=== PATIENT | male | born 1940 | race Caucasian/White ===

== ENCOUNTER 2017-06-04 10:23 | Emergency (ER) | payer MEDICAID, MEDICARE ==
[~2017-06-04] VITALS: Ht 165.1 cm; Wt 50.0 kg
[~2017-06-04 10:23] MED LIST: FURO40TA5 PO; INSLAN SQ; LISI10TA5 PO; METO25TA6 PO; SOLI5TAB5 PO; SPIR25TA4 PO
[2017-06-04 11:30] LABS: BASOPHILS % 0.6 % (0.0-2.0); EOSINOPHILS % 1.4 % (0.0-5.0); HEMATOCRIT. 43.5 % (42.0-52.0); HEMOGLOBIN. 14.6 g/dL (14.0-18.0); LYMPHOCYTES % 14.1 % (20.0-50.0); MEAN CORPUSCULAR HEMOGLOBIN 35.5 pg (28.0-32.0); MEAN CORPUSCULAR VOLUME 105.9 fL (80.0-94.0); MEAN PLATELET VOLUME 9.1 fl (7.4-10.4); MONOCYTES % 13.4 % (2.0-8.0); NEUTROPHILS % 70.5 % (40.0-76.0); PLATELET 191 x1000/uL (130-400); RED BLOOD CELL COUNT 4.11 mill/uL (4.7-6.1); RED CELL DISTRIBUTION WIDTH 18.8 % (11.6-14.6)
[2017-06-04 11:39] LABS: INR 1.5; PARTIAL THROMBOPLASTIN TIME 29.3 sec (24.0-34.0); PROTHROMBIN TIME 15.4 sec
[2017-06-04 12:55] VITALS: BP 123/70
[2017-06-04 13:14] LABS: CARBON DIOXIDE 21 mEq/L (21-32); CHLORIDE 101 mEq/L (98-107)
== END 2017-06-04 13:52 | disposition home or self-care (01) ==
LOC: ER 11:16
DX: R18.8 Other ascites (principal); I10 Essential (primary) hypertension; G89.29 Other chronic pain; E11.9 Type 2 diabetes mellitus without complications; K74.60 Unspecified cirrhosis of liver; Z79.4 Long term (current) use of insulin; Z79.82 Long term (current) use of aspirin; Z85.46 Personal history of malignant neoplasm of prostate
CPT/HCPCS: 36415; 80053; 85025; 85610; 85730; 99284

== ENCOUNTER 2017-06-20 15:40 | Observation (INO) | payer MEDICARE, MEDICAID ==
[~2017-06-20] VITALS: Ht 170.2 cm; Wt 75.3 kg
[2017-06-20] MEDS ORDERED: FUROSEMIDE 40MG/4ML VIAL IV STA (17:19)
[2017-06-20] MEDS ORDERED: ONDANSETRON HCL 4MG/2ML VIAL IV STA (17:19)
[2017-06-20 17:45] LABS: HEMOGLOBIN. 14.6 g/dL (14.0-18.0); MEAN CORPUSCULAR HEMOGLOBIN 35.5 pg (28.0-32.0); MEAN CORPUSCULAR VOLUME 107.3 fL (80.0-94.0); MEAN PLATELET VOLUME 8.6 fl (7.4-10.4); PLATELET 168 x1000/uL (130-400); RED CELL DISTRIBUTION WIDTH 18.3 % (11.6-14.6)
[2017-06-20 17:48] LABS: INR 1.2; PARTIAL THROMBOPLASTIN TIME 29.2 sec (24.0-34.0)
[2017-06-20 17:56] LABS: CARBON DIOXIDE 26 mEq/L (21-32); CHLORIDE 101 mEq/L (98-107); CREATINE KINASE 49 IU/L (39-308); TROPONIN I 0.03 ng/mL (0.00-0.04)
[2017-06-20 18:10] LABS: PLATELET ESTIMATE NORMAL
[2017-06-20] MEDS: GENTAMICIN 0.3% OPHTH DROPS 5ML BOTHEYE SCH (18:48)
[2017-06-20 18:50] LABS: CLARITY URINE CLEAR (CLEAR); COLOR URINE YELLOW (YELLOW); GLUCOSE URINE NEGATIVE (NEGATIVE); KETONES URINE NEGATIVE (NEGATIVE); LEUKOCYTE ESTERASE URINE NEGATIVE (NEGATIVE); NITRITE URINE NEGATIVE (NEGATIVE); OCCULT BLOOD URINE NEGATIVE (NEGATIVE); PH URINE 5.5 (4.5-8.0); PROTEIN URINE NEGATIVE (NEGATIVE); SPECIFIC GRAVITY URINE 1.011 (1.005-1.030)
[2017-06-20 21:45] VITALS: BP 99/69
[2017-06-20 23:00] VITALS: BP 128/78
[2017-06-20] MEDS ORDERED: DEXTROSE 50% WATER 50ML SYRINGE IV PRN (23:30)
[2017-06-21] VITALS: BP 94/63
[2017-06-21] MEDS: GENTAMICIN 0.3% OPHTH DROPS 5ML BOTHEYE SCH ×6 (00:14→18:45)
[2017-06-21 04:00] VITALS: BP 106/78
[2017-06-21 06:33] LABS: INR 1.2; PARTIAL THROMBOPLASTIN TIME 29.4 sec (24.0-34.0); PROTHROMBIN TIME 12.5 sec
[2017-06-21 06:47] LABS: HEMOGLOBIN. 13.7 g/dL (14.0-18.0); MEAN CORPUSCULAR HEMOGLOBIN 35.5 pg (28.0-32.0); MEAN CORPUSCULAR VOLUME 106.3 fL (80.0-94.0); PLATELET 164 x1000/uL (130-400); RED BLOOD CELL COUNT 3.85 mill/uL (4.7-6.1); RED CELL DISTRIBUTION WIDTH 18.1 % (11.6-14.6)
[2017-06-21] MEDS: BLOOD SUGAR DIAGNOSTIC STRIP TEST SCH ×3 (06:52→17:20)
[2017-06-21] MEDS: INSULIN LISPRO 100 UNITS/ML SUBCUT SCH ×3 (07:50→18:42)
[2017-06-21 08:00] VITALS: BP 107/73
[2017-06-21] MEDS ORDERED: PANTOPRAZOLE 40MG DR TABLET PO SCH (08:00)
[2017-06-21 11:30] VITALS: BP 116/91
[2017-06-21] MEDS: SPIRONOLACTONE 50MG TABLET PO SCH ×2 (11:37→17:00)
[2017-06-21] MEDS: FUROSEMIDE 40MG TABLET PO SCH ×2 (11:39→17:00)
[2017-06-21 12:52] LABS: PLATELET ESTIMATE NORMAL
[2017-06-21] MEDS ORDERED: LIDOCAINE HCL 1% 20ML VIAL (Pyxis) INJ ONE (14:17)
[2017-06-21] MEDS ORDERED: SODIUM BICARBONATE 4.2% 5 MEQ/10 ML DISP.SYRIN IV ONE (14:17)
[2017-06-21 19:48] VITALS: BP 102/67
== END 2017-06-21 20:30 | disposition home or self-care (01) ==
LOC: ER 15:53 → ENRESERV 19:13 → CANRESERV 19:13 → EDBEDREQ 20:42 → INTOOBSV 20:46 → 6EST 20:46 → EDBEDREQ 20:52 → EDBEDREQSVC 21:03 → ENRESERV 21:08
PROVIDERS: ADMIT Internal Medicine; ATTEND Internal Medicine
DX: R18.8 Other ascites (principal); K74.60 Unspecified cirrhosis of liver; I13.0 Hypertensive heart and chronic kidney disease with heart failure and stage 1 through stage 4 chronic kidney disease, or unspecified chronic kidney disease; N18.9 Chronic kidney disease, unspecified; I50.22 Chronic systolic (congestive) heart failure; E11.22 Type 2 diabetes mellitus with diabetic chronic kidney disease; N17.9 Acute kidney failure, unspecified; F10.21 Alcohol dependence, in remission; H10.9 Unspecified conjunctivitis; Z85.9 Personal history of malignant neoplasm, unspecified
CPT/HCPCS: 36415; 49083; 71010; 80048; 80053; 81003; 82550; 82962; 83605; 83690; 83880; 84443; 84484; 85025; 85610; 85730; 87040; 87070; 87205; 89050; 93005; 93970; 96372; 96374; 96375; 99285; C1893; G0378; J1815; J1940; J2405; J3490

== ENCOUNTER 2017-08-19 00:41 | Inpatient (IN) | payer MEDICARE, MEDICAID ==
[~2017-08-19] VITALS: Ht 160 cm; Wt 70.8 kg
[~2017-08-19 00:41] MED LIST changes: +SOLI5TAB PO; -SOLI5TAB5 PO
[2017-08-19] MEDS ORDERED: FUROSEMIDE 40MG/4ML VIAL IV NR (01:45)
[2017-08-19 02:11] LABS: BASOPHILS % 1.3 % (0.0-2.0); EOSINOPHILS % 2.2 % (0.0-5.0); HEMATOCRIT. 44.7 % (42.0-52.0); HEMOGLOBIN. 14.8 g/dL (14.0-18.0); LYMPHOCYTES % 10.7 % (20.0-50.0); MEAN CORPUSCULAR HEMOGLOBIN 35.7 pg (28.0-32.0); MEAN CORPUSCULAR VOLUME 107.9 fL (80.0-94.0); MEAN PLATELET VOLUME 8.3 fl (7.4-10.4); MONOCYTES % 13.4 % (2.0-8.0); NEUTROPHILS % 72.4 % (40.0-76.0); PLATELET 165 x1000/uL (130-400); RED BLOOD CELL COUNT 4.14 mill/uL (4.7-6.1); RED CELL DISTRIBUTION WIDTH 16.6 % (11.6-14.6)
[2017-08-19 02:22] LABS: INR 1.2; PARTIAL THROMBOPLASTIN TIME 27.5 sec (23.4-31.0); PROTHROMBIN TIME 12.7 sec (9.4-11.6)
[2017-08-19 02:29] LABS: CARBON DIOXIDE 22 mEq/L (21-32); CHLORIDE 106 mEq/L (98-107); TROPONIN I 0.03 ng/mL (0.00-0.04)
[2017-08-19] MEDS ORDERED: LEVOFLOXACIN 750MG PREMIX 150 ML IV NR (02:45)
[2017-08-19 16:00] VITALS: BP 104/71
[2017-08-19 17:02] VITALS: BP 104/71
[2017-08-19] MEDS ORDERED: FURO20TA4 PO (20:33)
[2017-08-19] MEDS ORDERED: METF10002 PO (20:35)
[2017-08-19] MEDS ORDERED: LISI-186 PO (20:35)
[2017-08-19] MEDS ORDERED: CARV3.1242 PO (20:35)
[2017-08-19] MEDS ORDERED: DEXTROSE 50% WATER 50ML SYRINGE IV PRN (23:15)
[2017-08-20 00:06] VITALS: BP 103/68
[2017-08-20 00:13] LABS: AMMONIA 51 uMol/L (<32)
[2017-08-20 04:40] VITALS: BP 104/74
[2017-08-20] MEDS: INSULIN LISPRO 100 UNITS/ML SUBCUT SCH ×4 (07:15→20:16)
[2017-08-20] MEDS: BLOOD SUGAR DIAGNOSTIC STRIP TEST SCH ×4 (07:38→20:12)
[2017-08-20 07:46] VITALS: BP 104/72
[2017-08-20] MEDS: CARVEDILOL 3.125 MG TABLET PO SCH ×2 (08:49→20:12)
[2017-08-20] MEDS: FUROSEMIDE 20MG TABLET PO SCH ×2 (08:49→17:58)
[2017-08-20] MEDS ORDERED: METOPROLOL TARTRATE 25MG TABLET PO SCH (09:00)
[2017-08-20] MEDS ORDERED: LIDOCAINE HCL 1% 20ML VIAL (Pyxis) INJ ONE (09:32)
[2017-08-20 13:11] VITALS: BP 108/68
[2017-08-20 15:20] VITALS: BP 86/60
[2017-08-20] MEDS ORDERED: ALBUMIN HUMAN 25GM/500ML (5%) IV NR (18:00)
[2017-08-20 19:18] VITALS: BP 93/66
[2017-08-21] VITALS (7 sets, daily range): BP systolic 93–133; BP diastolic 56–74
[2017-08-21] MEDS: BLOOD SUGAR DIAGNOSTIC STRIP TEST SCH ×3 (06:00→18:22)
[2017-08-21] MEDS: LACTULOSE 20G/30ML UDC PO SCH ×2 (06:00→13:19)
[2017-08-21] MEDS: INSULIN LISPRO 100 UNITS/ML SUBCUT SCH ×3 (06:04→18:22)
[2017-08-21] MEDS: FUROSEMIDE 20MG TABLET PO SCH ×3 (09:00→18:36)
[2017-08-21] MEDS: CARVEDILOL 3.125 MG TABLET PO SCH (09:00)
[2017-08-21 12:51] LABS: BASOPHILS % 0.5 % (0.0-2.0); EOSINOPHILS % 0.5 % (0.0-5.0); HEMATOCRIT. 43.9 % (42.0-52.0); HEMOGLOBIN. 14.4 g/dL (14.0-18.0); LYMPHOCYTES % 12.4 % (20.0-50.0); MEAN CORPUSCULAR HEMOGLOBIN 35.1 pg (28.0-32.0); MEAN CORPUSCULAR VOLUME 107.2 fL (80.0-94.0); MEAN PLATELET VOLUME 8.2 fl (7.4-10.4); MONOCYTES % 12.2 % (2.0-8.0); NEUTROPHILS % 74.4 % (40.0-76.0); PLATELET 159 x1000/uL (130-400); RED BLOOD CELL COUNT 4.09 mill/uL (4.7-6.1); RED CELL DISTRIBUTION WIDTH 16.1 % (11.6-14.6)
== END 2017-08-21 18:52 | disposition home or self-care (01) | DRG 441 ==
LOC: ER 00:51 → INTOOBSV 02:34 → 5WST 02:34 → OBSVTOIN 02:34 → EDBEDREQTM 02:37 → EDBEDREQ 02:37 → ENRESERV 14:34 → CANBEDREQ 16:06
PROVIDERS: ADMIT Internal Medicine; ATTEND Internal Medicine
PROC: 0W9G3ZZ Drainage of Peritoneal Cavity, Percutaneous Approach (ICD-10-PCS; principal; 2017-08-20)
DX: K72.90 Hepatic failure, unspecified without coma (principal); E43 Unspecified severe protein-calorie malnutrition; E11.9 Type 2 diabetes mellitus without complications; F03.90 Unspecified dementia, unspecified severity, without behavioral disturbance, psychotic disturbance, mood disturbance, and anxiety; K70.31 Alcoholic cirrhosis of liver with ascites; F10.20 Alcohol dependence, uncomplicated; Y90.9 Presence of alcohol in blood, level not specified; I10 Essential (primary) hypertension; Z79.4 Long term (current) use of insulin; Z79.899 Other long term (current) drug therapy
CPT/HCPCS: 36415; 49083; 71010; 80048; 80053; 82140; 82962; 83605; 83690; 83880; 84484; 85025; 85610; 85730; 87040; 93005; 96365; 96366; 96375; 99291; G0378; J1815; J1940; J1956; J3490; J7050; P9041

== ENCOUNTER 2017-08-31 18:49 | Emergency (ER) | payer MEDICARE, MEDICAID ==
[~2017-08-31] VITALS: Ht 162.6 cm; Wt 73.0 kg
[~2017-08-31 18:49] MED LIST changes: +CARV3.1242 PO; +FURO20TA4 PO; -FURO40TA5 PO; -INSLAN SQ; +LISI-186 PO; -LISI10TA5 PO; +METF10002 PO; -SOLI5TAB PO; -SPIR25TA4 PO
[2017-08-31 20:20] VITALS: BP 95/64
== END 2017-08-31 22:13 | disposition home or self-care (01) ==
LOC: ER 18:57
DX: R18.8 Other ascites (principal); I50.9 Heart failure, unspecified
CPT/HCPCS: 99283